=== PATIENT | female | born 1955 | race Caucasian/White ===

== ENCOUNTER 2018-12-18 19:55 | Emergency (ER) | payer OTHER ==
[2018-12-18 20:17] VITALS: BP 133/51
[2018-12-18] MEDS ORDERED: Neomyc/Polym/HC 1% OTIC SUSP* **OTIC LEFT EAR ONE (20:27)
--- NOTE | 2018-12-18 20:32 | UC ---
Ear Complaint HPI - HPI Summary HPI Summary: left ear feeling fullness for past 3 days, with increase itching. - History of Current Complaint Chief Complaint: UCEar Stated Complaint: LEFT EAR CONCERN Time Seen by Provider: 12/18/18 20:26 Hx Obtained From: Patient ?: No Onset/Duration: Sudden Onset, Lasting Days Severity Initially: Mild Severity Currently: Mild Pain Intensity: 0 Associated Signs/Symptoms: Positive: Foreign Body Sensation - Allergies/Home Medications Allergies/Adverse Reactions: Allergies Allergy/AdvReac Type Severity Reaction Status Date / Time No Known Allergies Allergy Verified 12/18/18 20:17 Home Medications: Home Medications Folic Acid TAB* [Folvite TAB*] 1 mg PO DAILY 12/18/18 [History Confirmed ] Methotrexate TAB* 2.5 mg PO WEEKLY 12/18/18 [History Confirmed 12/18/18] PMH/Surg Hx/FS Hx/Imm Hx Previously Healthy: No - RA - Surgical History Surgical History: None - Family History Known Family History: Positive: Hypertension - Social History Alcohol Use: None Substance Use Type: None Smoking Status (MU): Light Every Day Tobacco Smoker Type: Cigarettes Amount Used/How Often: 2 CIGS A DAY Have You Smoked in the Last Year: Yes Household Exposure Type: Cigarettes Review of Systems All Other Systems Reviewed And Are Negative: Yes ENT: Positive: Ear Ache Is Patient Immunocompromised?: Yes - RA Physical Exam Triage Information Reviewed: Yes Appearance: Well-Appearing, Pain Distress, Obese Vital Signs: Initial Vital Signs Temp 98.8 F 12/18/18 20:14 Pulse 81 12/18/18 20:14 Resp 16 12/18/18 20:14 BP 133/51 12/18/18 20:14 Pulse Ox 99 12/18/18 20:14 Vital Signs Reviewed: Yes Eye Exam: Normal ENT: Positive: TMs normal, Other - small amount of exudate in the external canal of the left ear. slightly inflammed, not swollen Dental Exam: Normal Neck exam: Normal Respiratory Exam: Normal Cardiovascular Exam: Normal Abdominal Exam: Normal Bowel Sounds: Positive: Present Musculoskeletal Exam: Normal Neurological Exam: Normal Psychological Exam: Normal Skin Exam: Normal Ear Complaint Course/Dx - Course Course Of Treatment: hx obtained, exam performed ,meds reviewed, treated for left otitis externa - Differential Dx/Diagnosis Differential Diagnosis/HQI/PQRI: Otitis Externa, Otitis Media, Perforated TM Provider Diagnosis: Left otitis externa Discharge - Sign-Out/Discharge Documenting (check all that apply): Patient Departure All imaging exams completed and their final reports reviewed: No Studies - Discharge Plan Condition: Stable Disposition: HOME Patient Education Materials: Otitis Externa (ED) Referrals: Rafael Pedroza MD [Primary Care Provider] - Additional Instructions: 1. take the medication as prescribed. 2. Use it for the full 7 days 3. follow up if not improving. - Billing Disposition and Condition Condition: STABLE Disposition: Home
== END 2018-12-18 20:46 | disposition home or self-care (01) ==
LOC: UCCORT 19:55
DX: H60.92 Unspecified otitis externa, left ear (principal); M06.9 Rheumatoid arthritis, unspecified; F17.210 Nicotine dependence, cigarettes, uncomplicated
CPT/HCPCS: 99212; A9270-GY; G0463

== ENCOUNTER 2019-03-15 17:05 | Emergency (ER) | payer OTHER ==
[2019-03-15 17:31] VITALS: BP 97/58
--- NOTE | 2019-03-15 17:57 | UC ---
Ear Complaint HPI - HPI Summary HPI Summary: Per textile supervisor: "left ear pain for past 2 days, states 4th infection" -here w/ her . -reviewd note from 01/01 seen here - dx'd w/ perforated TM and OE. treated w/ cortisporin w/ good relief. says she had an infection 2 wks ago but didnt get sen and it resolved on its own. -denies sinus pain. no fever. no cough - History of Current Complaint Chief Complaint: UCEar Stated Complaint: LEFT EAR CONCERN Time Seen by Provider: 03/15/19 17:19 Pain Intensity: 0 - Allergies/Home Medications Allergies/Adverse Reactions: Allergies Allergy/AdvReac Type Severity Reaction Status Date / Time No Known Allergies Allergy Verified 03/15/19 17:31 PMH/Surg Hx/FS Hx/Imm Hx Previously Healthy: Yes - Surgical History Surgical History: None - Family History Known Family History: Positive: Hypertension - Social History Alcohol Use: None Substance Use Type: None Smoking Status (MU): Light Every Day Tobacco Smoker Type: Cigarettes Amount Used/How Often: 2 CIGS A DAY Have You Smoked in the Last Year: Yes Household Exposure Type: Cigarettes Review of Systems All Other Systems Reviewed And Are Negative: Yes Constitutional: Positive: Negative Skin: Positive: Negative Eyes: Positive: Negative ENT: Positive: Ear Ache. Negative: Sore Throat, Sinus Congestion, Sinus Pain/ Tenderness Respiratory: Positive: Negative. Negative: Shortness Of Breath, Cough Cardiovascular: Positive: Negative Gastrointestinal: Positive: Negative Genitourinary: Positive: Negative Motor: Positive: Negative Neurovascular: Positive: Negative Musculoskeletal: Positive: Negative Neurological: Positive: Negative Psychological: Positive: Negative Is Patient Immunocompromised?: Yes - RA, on mTX Physical Exam Triage Information Reviewed: Yes Appearance: Well-Appearing, No Pain Distress, Well-Nourished Vital Signs: Initial Vital Signs Temp 99.1 F 03/15/19 17:28 Pulse 77 03/15/19 17:28 Resp 16 03/15/19 17:28 BP 97/58 03/15/19 17:28 Pulse Ox 97 03/15/19 17:28 Eye Exam: Normal Eyes: Positive: Conjunctiva Clear ENT: Positive: Pharynx normal, TMs normal - left canal with mild swelling,. tender and inflamed. TM nml, intact. no erythema, Uvula midline. Negative: Pharyngeal erythema Neck exam: Normal Neck: Positive: Supple, Nontender, No Lymphadenopathy Respiratory Exam: Normal Respiratory: Positive: Chest non-tender, Lungs clear, Normal breath sounds, No respiratory distress, No accessory muscle use. Negative: Crackles, Rhonchi, Stridor, Wheezing Cardiovascular Exam: Normal Cardiovascular: Positive: RRR, No Murmur Musculoskeletal Exam: Normal Neurological Exam: Normal Psychological Exam: Normal Skin Exam: Normal Ear Complaint Course/Dx - Differential Dx/Diagnosis Differential Diagnosis/HQI/PQRI: Cerumen Impaction, Otitis Externa, Otitis Media Provider Diagnosis: Otitis externa Discharge - Sign-Out/Discharge Documenting (check all that apply): Patient Departure All imaging exams completed and their final reports reviewed: No Studies - Discharge Plan Condition: Stable Disposition: HOME Prescriptions: Neomyc/Polym/HC 1% OTIC SUSP* [Cortisporin Otic Susp 1%*] 4 drop LEFT EAR BID # 1 btl Patient Education Materials: Otitis Externa (ED) Referrals: Rafale Pedroza MD [Primary Care Provider] - 1 Week Additional Instructions: Consider referral to an ENT specialist if your symptoms increase or persist. - Billing Disposition and Condition Condition: STABLE Disposition: Home
== END 2019-03-15 18:17 | disposition home or self-care (01) ==
LOC: UCCORT 17:05
DX: H60.92 Unspecified otitis externa, left ear (principal); F17.210 Nicotine dependence, cigarettes, uncomplicated
CPT/HCPCS: 99212; G0463

== ENCOUNTER 2019-07-01 16:55 | Emergency (ER) | payer OTHER ==
--- OUTSIDE RECORDS SUMMARY | 2019-07-01 17:00 | XMS REPORT | Continuity of Care Document ---
:1955 External Reference #:[id number] Author Name Rafael Pedroza (transmitted by agent of provider Luz Huffman) Address [address] [place] [address] Problems Description No Information Available Social History Type Date Description Comments Sex Unknown Tobacco Use Start: Unknown Patient is a current cigarette smoker, smokes every day ETOH Use Social Recreational Drug Use Denies Drug Use Tobacco Use Start: Unknown Patient is a current smoker, smokes every day Smoking Status Reviewed: 06/29/17 Patient is a current smoker, smokes every day Allergies, Adverse Reactions, Alerts Description No Known Drug Allergies Medications Active Medications SIG Qnty Indications Ordering Provider Date Neomycin/Polymyxin/Hy 1 qtt both 10units H60.22 Rafael Pedroza 04/11/2019 drocortisone (Otic) right ear 4 x daily 3.5-71290-3 Solution Alive Once Daily one a day Unknown Womens 50+ Ultra Potency Tablets Medications Administered in Office Medication SIG Qnty Indications Ordering Provider Date Office Emergency Care Rafael Pedroza 08/03/2018 Injection Immunizations CPT Code Status Date Vaccine Lot # [id number] Given 06/01/2017 Influenza Virus (Afluria) Split Virus 3 Years Of Age And Older Vital Signs Date Vital Result Comment 06/14/2019 10:31am BP Systolic 112 mmHg BP Diastolic 62 mmHg Heart Rate 70 /min Body Temperature 97.3 F Respiratory Rate 16 /min Weight 228.00 lb 05/04/2019 11:10am BP Systolic 98 mmHg BP Diastolic 68 mmHg Heart Rate 77 /min Height 65 inches 5'5" Weight 224.00 lb BMI (Body Mass Index) 37.3 kg/m2 O2 % BldC Oximetry 95 % Results Test Acquired Date Facility Test Result H/L Range Note Comprehensive 04/26/2019 [facility] Glucose 87 mg/dL Normal 74-106 1 Metabolic Panel [address] [place] [address] [phone] BUN 13 mg/dL Normal 7-18 Creatinine 1.1 mg/dL Normal 0.6-1.3 Glom Filtration Rate, Estimate 53 mL/min >60 If >60 mL/min >60 2 BUN/Creat 11.8 ratio Sodium 141 mmol/L Normal 136-145 Potassium 4.3 mmol/L Normal 3.5-5.1 Chloride 109 mmol/L High 98-107 Carbon Dioxide 27 mmol/L Normal 21-32 Anion Gap 5 mEq/L Low 8-16 Calcium 8.8 mg/dL Normal 8.5-10.1 Total Protein 7.7 g/dL Normal 6.4-8.2 Albumin 3.4 g/dL Normal 3.4-5.0 Globulin 4.3 g/dL Normal 1.9-4.3 Alb/Glob 0.8 ratio Bilirubin,Total 0.2 mg/dL Normal 0.2-1.0 Sgot/Ast 15 U/L Normal 15-37 SGPT/Alt 21 U/L Normal 12-78 Alkaline Phosphatase 96 U/L Normal 45-117 CBS W/Automated 04/26/2019 [facility] White 7.7 K/uL Normal 3.1-10.[address] [place] [address] Count [phone] Red Blood Count 4.11 M/uL Normal 3.90-5.40 Hemoglobin 13.0 gm/dL Normal 11.6-15.8 Hematocrit 40.1 % Normal 36.0-46.1 Mean Cell Volume 97.6 fl Normal 80.9-99.0 Mean Corpuscular HGB 31.6 pg Normal 25.9-32.7 Mean Corpuscular HGB Conc 32.4 g/dL Normal 30.8-34.3 Platelet Count 296 K/uL Normal 155-360 Red Cell Distri Width SD 50.1 fl High 36-47 Red Cell Distri Width %CV 13.9 % Normal 11.7-14.4 Mean Platelet Volume 9.9 fl Normal 8.9-12.4 Neut% 65.6 % Normal 40.4-72.8 Lymph % 20.8 % Normal 20.0-42.0 [place] % 10.1 % Normal 4.3-13.2 Eo% 2.3 % Normal 0.0-6.6 Bas% 0.8 % Normal 0.0-1.1 Immature Grans 0.4 % Normal 0.0-5.0 NRBC % 0.0 /100WBC < 10/ 100 WBC Neut# 5.03 K/uL Normal 1.8-7.0 Lymph # 1.59 K/uL Normal 1.0-4.0 [place] # 0.77 K/uL Normal 0.3-0.9 Eos # 0.18 K/uL Normal 0.0-0.5 Baso # 0.06 K/uL Normal 0.0-0.1 Immature Grans Absolute 0.03 K/uL NRBC # 0.00 K/uL 1 DX WITH KIDNEY INFECTION, SEVERE BACK PAIN 2 Note: Persistent reduction for 3 months or more in an eGFR <60 mL/min/1.73 m2 defines CKD. Patients with eGFR values >/=60 mL/min/1.73 m2 may also have CKD if evidence of persistent proteinuria is present. The original MDRD equation for estimated GFR is not valid for patients less than 18 years of age. Additional information may be found at [email or web address]. 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, left ear E11.9 Type 2 diabetes mellitus without complications J44.9 Chronic obstructive pulmonary disease, unspecified M06.9 Rheumatoid arthritis, unspecified M67.422 Ganglion, left elbow E66.9 Obesity, unspecified Office Visit 04/11/2019 11:45a Main Office Rafael Pedroza 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, left ear E11.9 Type 2 diabetes mellitus without complications J44.9 Chronic obstructive pulmonary disease, unspecified M06.9 Rheumatoid arthritis, unspecified M67.422 Ganglion, left elbow E66.9 Obesity, unspecified E55.9 Vitamin D deficiency, unspecified I34.0 Nonrheumatic mitral (valve) insufficiency Assessments Date Code Description Provider 05/04/2019 N39.0 Urinary tract infection, site not specified Gal[place]isa, Rafael 05/04/2019 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, left ear Gauss, Rafael 05/04/2019 E11.9 Type 2 diabetes mellitus without complications Gauss, Rafael 05/04/2019 J44.9 Chronic obstructive pulmonary disease, unspecified Gauss, Rafael 05/04/2019 M06.9 Rheumatoid arthritis, unspecified Gauss, Rafael 05/04/2019 M67.422 Ganglion, left elbow Gauss, Rafael 05/04/2019 E66.9 Obesity, unspecified Gauss, Rafael 04/11/2019 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, left ear Gauss, Rafael 04/11/2019 E11.9 Type 2 diabetes mellitus without complications [facility], Rafael 04/11/2019 J44.9 Chronic obstructive pulmonary disease, unspecified Gauss, Rafael 04/11/2019 M06.9 Rheumatoid arthritis, unspecified Gauss, Rafael 04/11/2019 M67.422 Ganglion, left elbow Gauss, Rafael 04/11/2019 E66.9 Obesity, unspecified Gauss, [facility] 04/11/2019 E55.9 Vitamin D deficiency, unspecified Deuss, [facility] 04/11/2019 I34.0 Nonrheumatic mitral (valve) insufficiency Rafael Pedroza Plan of Treatment Future Appointment(s):07/19/2019 10:00 am - Rafael Pedroza at Main Office Functional Status Description No Information Available Mental Status Description No Information Available Referrals Refer to Reason for Referral Status Appt Date Kenton Marley M.D. Closed 05/02/[address] [place] [address] [phone]
--- OUTSIDE RECORDS SUMMARY | 2019-07-01 17:00 | XMS REPORT | Continuity of Care Document ---
:1955 External Reference #:[id number] Author Name Rafael Pedroza (transmitted by agent of provider Luz Huffman) Address [address] [place] [address] Problems Description No Information Available Social History [...] drocortisone (Otic) right ear 4 x daily 3.5-83588-2 Solution Alive Once Daily one a day [...] Test Result H/L Range Note Comprehensive 04/26/2019 [facility] Glucose 87 mg/dL Normal 74-106 1 Metabolic Panel [address] [place] [address] [phone] BUN 13 mg/dL Normal 7-18 Creatinine 1.1 [...] 96 U/L Normal 45-117 CBS W/Automated 04/26/2019 [facility] White 7.7 K/uL Normal 3.1-10.[address] [place] [address] Count [phone] Red Blood Count 4.11 M/uL Normal 3.90-5.40 [...] 40.4-72.8 Lymph % 20.8 % Normal 20.0-42.0 [place] % 10.1 % Normal 4.3-13.2 Eo% 2.3 % Normal 0.0-6.6 Bas% 0.8 % Normal 0.0-1.1 Immature Grans 0.4 % Normal 0.0-5.0 NRBC % 0.0 /100WBC < 10/ 100 WBC Neut# 5.03 K/uL Normal 1.8-7.0 Lymph # 1.59 K/uL Normal 1.0-4.0 [place] # 0.77 K/uL Normal 0.3-0.9 Eos # [...] [email or web address]. Procedures Date Code Description Status 12/23/2017 [id number] Bone Mineral Density Test Completed 11/22/2015 [id number] Bone Mineral Density Test Completed Medical Devices [...] E11.9 Type 2 diabetes mellitus without complications [facility], Rafael 04/11/2019 J44.9 Chronic obstructive pulmonary disease, unspecified Gauss, Rafael 04/11/2019 M06.9 Rheumatoid arthritis, unspecified Gauss, Rafael 04/11/2019 M67.422 Ganglion, left elbow Gauss, Rafael 04/11/2019 E66.9 Obesity, unspecified Gauss, [facility] 04/11/2019 E55.9 Vitamin D deficiency, unspecified Ohuss, [facility] 04/11/2019 I34.0 Nonrheumatic mitral (valve) insufficiency Rafael Pedroza Plan of Treatment Future Appointment(s):07/19/2019 10:00 am - Rafael Pedroza at Main Office Functional Status Description No Information Available Mental Status Description No Information Available Referrals Refer to Reason for Referral Status Appt Date Kenton Marley M.D. Closed 05/02/[address] [place] [address] [phone]
--- OUTSIDE RECORDS SUMMARY | 2019-07-01 17:00 | XMS REPORT | Continuity of Care Document ---
:1955 External Reference #:[id number] Author Name Rafael Pedroza (transmitted by agent of provider Luz Huffman) Address [address] [place] [address] Problems Description No Information Available Social History [...] drocortisone (Otic) right ear 4 x daily 3.5-45560-3 Solution Alive Once Daily one a day [...] Test Result H/L Range Note Comprehensive 04/26/2019 [facility] Glucose 87 mg/dL Normal 74-106 1 Metabolic Panel [address] [place] [address] [phone] BUN 13 mg/dL Normal 7-18 Creatinine 1.1 [...] 96 U/L Normal 45-117 CBS W/Automated 04/26/2019 [facility] White 7.7 K/uL Normal 3.1-10.[address] [place] [address] Count [phone] Red Blood Count 4.11 M/uL Normal 3.90-5.40 [...] 40.4-72.8 Lymph % 20.8 % Normal 20.0-42.0 [place] % 10.1 % Normal 4.3-13.2 Eo% 2.3 % Normal 0.0-6.6 Bas% 0.8 % Normal 0.0-1.1 Immature Grans 0.4 % Normal 0.0-5.0 NRBC % 0.0 /100WBC < 10/ 100 WBC Neut# 5.03 K/uL Normal 1.8-7.0 Lymph # 1.59 K/uL Normal 1.0-4.0 [place] # 0.77 K/uL Normal 0.3-0.9 Eos # [...] [email or web address]. Procedures Date Code Description Status 12/23/2017 [id number] Bone Mineral Density Test Completed 11/22/2015 [id number] Bone Mineral Density Test Completed Medical Devices [...] E11.9 Type 2 diabetes mellitus without complications [facility], Rafael 04/11/2019 J44.9 Chronic obstructive pulmonary disease, unspecified Gauss, Rafael 04/11/2019 M06.9 Rheumatoid arthritis, unspecified Gauss, Rafael 04/11/2019 M67.422 Ganglion, left elbow Gauss, Rafael 04/11/2019 E66.9 Obesity, unspecified Gauss, [facility] 04/11/2019 E55.9 Vitamin D deficiency, unspecified Dcuss, [facility] 04/11/2019 I34.0 Nonrheumatic mitral (valve) insufficiency Rafael Pedroza Plan of Treatment Future Appointment(s):07/19/2019 10:00 am - Rafael Pedroza at Main Office Functional Status Description No Information Available Mental Status Description No Information Available Referrals Refer to Reason for Referral Status Appt Date Kenton Marley M.D. Closed 05/02/[address] [place] [address] [phone]
--- OUTSIDE RECORDS SUMMARY | 2019-07-01 17:00 | XMS REPORT | Continuity of Care Document ---
:1955 External Reference #:[id number] Author Name Rafael Pedroza (transmitted by agent of provider Luz Huffman) Address [address] [place] [address] Problems Description No Information Available Social History [...] drocortisone (Otic) right ear 4 x daily 3.5-12768-2 Solution Alive Once Daily one a day Unknown Womens 50+ Ultra Potency Tablets Medications Administered in Office Medication SIG Qnty Indications Ordering Provider Date Office Emergency Care Rafael Pedroza 08/03/2018 Injection Immunizations CPT Code Status Date Vaccine Lot # [id number] Given 06/01/2017 Influenza Virus (Quadrivalent)Splitvirus 3 Years Of Age And Older Vital [...] Test Result H/L Range Note Comprehensive 04/26/2019 [facility] Glucose 87 mg/dL Normal 74-106 1 Metabolic Panel [address] [place] [address] [phone] BUN 13 mg/dL Normal 7-18 Creatinine 1.1 [...] 96 U/L Normal 45-117 CBS W/Automated 04/26/2019 [facility] White 7.7 K/uL Normal 3.1-10.[address] [place] [address] Count [phone] Red Blood Count 4.11 M/uL Normal 3.90-5.40 [...] 40.4-72.8 Lymph % 20.8 % Normal 20.0-42.0 [place] % 10.1 % Normal 4.3-13.2 Eo% 2.3 % Normal 0.0-6.6 Bas% 0.8 % Normal 0.0-1.1 Immature Grans 0.4 % Normal 0.0-5.0 NRBC % 0.0 /100WBC < 10/ 100 WBC Neut# 5.03 K/uL Normal 1.8-7.0 Lymph # 1.59 K/uL Normal 1.0-4.0 [place] # 0.77 K/uL Normal 0.3-0.9 Eos # [...] [email or web address]. Procedures Date Code Description Status 12/23/2017 [id number] Bone Mineral Density Test Completed 11/22/2015 [id number] Bone Mineral Density Test Completed Medical Devices Description No Information Available Encounters Type Date Location Provider Dx Diagnosis Office Visit 06/14/2019 10:00a Main Office Rafael Pedroza H92.02 Otalgia, left ear Office Visit 05/04/2019 11:15a Main Office Rafael [...] (valve) insufficiency Assessments Date Code Description Provider 06/14/2019 H92.02 Otalgia, left ear Gauss, Rafael 05/04/2019 N39.0 Urinary tract infection, site not specified Gauss, Rafael 05/04/2019 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, left [...] 2 diabetes mellitus without complications Gauss, Rafael 04/11/2019 J44.9 Chronic obstructive pulmonary disease, unspecified Gauss, Rafael 04/11/2019 M06.9 Rheumatoid arthritis, unspecified Gauss, Rafael 04/11/2019 M67.422 Ganglion, left elbow Gauss, Rafael 04/11/2019 E66.9 Obesity, unspecified Gauss, Rafael 04/11/2019 E55.9 Vitamin D deficiency, unspecified Gauss, Rafael 04/11/2019 I34.0 Nonrheumatic mitral (valve) insufficiency Rafael Pedroza Plan of Treatment Future Appointment(s):07/19/2019 10:00 am - Rafael Pedroza at Main Office Functional Status Description No Information Available Mental Status Description No Information Available Referrals Refer to Dr Reason for Referral Status Appt Date Kenton Marley M.D. Created [address] [place] [address] [phone] Kenton Marley M.D. Closed 05/02/[address] [place] [address] [phone]
--- OUTSIDE RECORDS SUMMARY | 2019-07-01 17:00 | XMS REPORT | Continuity of Care Document ---
:1955 External Reference #:[id number] Author Name Rafael Pedroza (transmitted by agent of provider Yane Rincon) Address [address] [place] [address] Problems Description No Information Available Social History [...] drocortisone (Otic) right ear 4 x daily 3.5-41241-9 Solution Alive Once Daily one a day [...] Test Result H/L Range Note Comprehensive 04/26/2019 [facility] Glucose 87 mg/dL Normal 74-106 1 Metabolic Panel [address] [place] [address] [phone] BUN 13 mg/dL Normal 7-18 Creatinine 1.1 [...] 96 U/L Normal 45-117 CBS W/Automated 04/26/2019 [facility] White 7.7 K/uL Normal 3.1-10.[address] [place] [address] Count [phone] Red Blood Count 4.11 M/uL Normal 3.90-5.40 [...] 40.4-72.8 Lymph % 20.8 % Normal 20.0-42.0 [place] % 10.1 % Normal 4.3-13.2 Eo% 2.3 % Normal 0.0-6.6 Bas% 0.8 % Normal 0.0-1.1 Immature Grans 0.4 % Normal 0.0-5.0 NRBC % 0.0 /100WBC < 10/ 100 WBC Neut# 5.03 K/uL Normal 1.8-7.0 Lymph # 1.59 K/uL Normal 1.0-4.0 [place] # 0.77 K/uL Normal 0.3-0.9 Eos # [...] [email or web address]. Procedures Date Code Description Status 12/23/2017 [id number] Bone Mineral Density Test Completed 11/22/2015 [id number] Bone Mineral Density Test Completed Medical Devices [...] 10:00 am - Rafael Pedroza at Main [id number] - Rafael PedrozaH92.02 Otalgia, left earComments:DESPITE DROPS NO IMPROVEMENTReferral:Kenton Marley M.D., Otolaryngology Functional Status Description No Information Available Mental Status Description No Information Available Referrals Refer to Dr Reason for Referral Status Appt Date Kenton Marley M.D. Created [address] [place] [phone] Kenton Marley M.D. Closed 05/02/2019 [address] [place] [address] [phone]
--- OUTSIDE RECORDS SUMMARY | 2019-07-01 17:00 | XMS REPORT | Continuity of Care Document ---
:1955 External Reference #:[id number] Author Name Rafael Pedroza (transmitted by agent of provider Luz Huffman) Address [address] [place] [address] Problems Description No Information Available Social History [...] drocortisone (Otic) right ear 4 x daily 3.5-29323-3 Solution Alive Once Daily one a day [...] Test Result H/L Range Note Comprehensive 04/26/2019 [facility] Glucose 87 mg/dL Normal 74-106 1 Metabolic Panel [address] [place] [address] [phone] BUN 13 mg/dL Normal 7-18 Creatinine 1.1 [...] 96 U/L Normal 45-117 CBS W/Automated 04/26/2019 [facility] White 7.7 K/uL Normal 3.1-10.[address] [place] [place] [address] Count [phone] Red Blood Count 4.11 M/uL Normal 3.90-5.40 [...] 40.4-72.8 Lymph % 20.8 % Normal 20.0-42.0 [place] % 10.1 % Normal 4.3-13.2 Eo% 2.3 % Normal 0.0-6.6 Bas% 0.8 % Normal 0.0-1.1 Immature Grans 0.4 % Normal 0.0-5.0 NRBC % 0.0 /100WBC < 10/ 100 WBC Neut# 5.03 K/uL Normal 1.8-7.0 Lymph # 1.59 K/uL Normal 1.0-4.0 [place] # 0.77 K/uL Normal 0.3-0.9 Eos # [...] [email or web address]. Procedures Date Code Description Status 12/23/2017 [id number] Bone Mineral Density Test Completed 11/22/2015 [id number] Bone Mineral Density Test Completed Medical Devices [...] E11.9 Type 2 diabetes mellitus without complications [facility], Rafael 04/11/2019 J44.9 Chronic obstructive pulmonary disease, unspecified Gauss, Rafael 04/11/2019 M06.9 Rheumatoid arthritis, unspecified Gauss, Rafael 04/11/2019 M67.422 Ganglion, left elbow Gauss, Rafael 04/11/2019 E66.9 Obesity, unspecified Gauss, [facility] 04/11/2019 E55.9 Vitamin D deficiency, unspecified Nvuss, [facility] 04/11/2019 I34.0 Nonrheumatic mitral (valve) insufficiency Rafael Pedroza Plan of Treatment Future Appointment(s):07/19/2019 10:00 am - Rafael Pedroza at Main Office Functional Status Description No Information Available Mental Status Description No Information Available Referrals Refer to Reason for Referral Status Appt Date Kenton Marley M.D. Closed 05/02/[address] [place] [address] [phone]
--- OUTSIDE RECORDS SUMMARY | 2019-07-01 17:00 | XMS REPORT | Continuity of Care Document ---
:1955 External Reference #:[id number] Author Name Rafael Pedroza (transmitted by agent of provider Luz Huffman) Address [address] [place] [address] Problems Description No Information Available Social History [...] drocortisone (Otic) right ear 4 x daily 3.5-14082-0 Solution Alive Once Daily one a day [...] Test Result H/L Range Note Comprehensive 04/26/2019 [facility] Glucose 87 mg/dL Normal 74-106 1 Metabolic Panel [address] [place] [address] [phone] BUN 13 mg/dL Normal 7-18 Creatinine 1.1 [...] 96 U/L Normal 45-117 CBS W/Automated 04/26/2019 [facility] White 7.7 K/uL Normal 3.1-10.[address] [place] [address] Count [phone] Red Blood Count 4.11 M/uL Normal 3.90-5.40 [...] 40.4-72.8 Lymph % 20.8 % Normal 20.0-42.0 [place] % 10.1 % Normal 4.3-13.2 Eo% 2.3 % Normal 0.0-6.6 Bas% 0.8 % Normal 0.0-1.1 Immature Grans 0.4 % Normal 0.0-5.0 NRBC % 0.0 /100WBC < 10/ 100 WBC Neut# 5.03 K/uL Normal 1.8-7.0 Lymph # 1.59 K/uL Normal 1.0-4.0 [place] # 0.77 K/uL Normal 0.3-0.9 Eos # [...] [email or web address]. Procedures Date Code Description Status 12/23/2017 [id number] Bone Mineral Density Test Completed 11/22/2015 [id number] Bone Mineral Density Test Completed Medical Devices [...] E11.9 Type 2 diabetes mellitus without complications [facility], Rafael 04/11/2019 J44.9 Chronic obstructive pulmonary disease, unspecified Gauss, Rafael 04/11/2019 M06.9 Rheumatoid arthritis, unspecified Gauss, Rafael 04/11/2019 M67.422 Ganglion, left elbow Gauss, Rafael 04/11/2019 E66.9 Obesity, unspecified Gauss, [facility] 04/11/2019 E55.9 Vitamin D deficiency, unspecified Nmuss, [facility] 04/11/2019 I34.0 Nonrheumatic mitral (valve) insufficiency Rafael Pedroza Plan of Treatment Future Appointment(s):07/19/2019 10:00 am - Rafael Pedroza at Main Office Functional Status Description No Information Available Mental Status Description No Information Available Referrals Refer to Reason for Referral Status Appt Date Kenton Marley M.D. Closed 05/02/[address] [place] [address] [phone]
--- OUTSIDE RECORDS SUMMARY | 2019-07-01 17:01 | XMS REPORT | Continuity of Care Document ---
:1955 External Reference #:[id number] Demographics Address [address] [facility] [address] [place] [address] Mobile Phone [phone] Work Phone [phone];ext=LARISA Preferred Language en Marital Status Not or Caodaism Affiliation Unknown Race White Ethnic Group Not or Author Name Rafael Pedroza (transmitted by agent of provider Teresa Sheth) Address [address] [place] [address] Problems Description No Information Available Social History [...] drocortisone (Otic) right ear 4 x daily 3.5-39143-1 Solution Alive Once Daily one a day Unknown Womens 50+ Ultra Potency Tablets Medications Administered in Office Medication SIG Qnty Indications Ordering Provider Date Office Emergency Care Rafael Pedroza 08/03/2018 Injection Immunizations CPT Code Status Date Vaccine Lot # [id number] Given 06/01/2017 Influenza Virus (Afluria) Split Virus 3 Years Of Age And Older Vital Signs Date Vital Result Comment 05/04/2019 11:10am BP Systolic 98 mmHg BP Diastolic 68 mmHg Heart Rate 77 /min Height 65 inches 5'5" Weight 224.00 lb BMI (Body Mass Index) 37.3 kg/m2 O2 % BldC Oximetry 95 % 04/11/2019 12:01pm BP Systolic 100 mmHg BP Diastolic 62 mmHg Heart Rate 82 /min Height 65 inches 5'5" Weight 222.00 lb BMI (Body Mass Index) 36.9 kg/m2 O2 % BldC Oximetry 93 % Results Test Date Facility Test Result H/L Range Note Comprehensive 04/26/2019 [facility] Glucose 87 mg/dL Normal 74-106 1 Metabolic Panel [address] [place] [address] [phone] BUN 13 mg/dL Normal 7-18 Creatinine 1.1 [...] 96 U/L Normal 45-117 CBS W/Automated 04/26/2019 [facility] White 7.7 K/uL Normal 3.1-10.[address] [place] [address] Count [phone] Red Blood Count 4.11 M/uL Normal 3.90-5.40 [...] 40.4-72.8 Lymph % 20.8 % Normal 20.0-42.0 [place] % 10.1 % Normal 4.3-13.2 Eo% 2.3 % Normal 0.0-6.6 Bas% 0.8 % Normal 0.0-1.1 Immature Grans 0.4 % Normal 0.0-5.0 NRBC % 0.0 /100WBC < 10/ 100 WBC Neut# 5.03 K/uL Normal 1.8-7.0 Lymph # 1.59 K/uL Normal 1.0-4.0 [place] # 0.77 K/uL Normal 0.3-0.9 Eos # [...] [email or web address]. 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, left ear E11.9 Type 2 diabetes mellitus without complications J44.9 Chronic obstructive pulmonary disease, unspecified M06.9 Rheumatoid arthritis, unspecified M67.422 Ganglion, left elbow E66.9 Obesity, unspecified E55.9 Vitamin D deficiency, unspecified I34.0 Nonrheumatic mitral (valve) insufficiency Assessments Date Code Description Provider 04/11/2019 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, left ear Rafael Pedroza 04/11/2019 E11.9 Type 2 diabetes mellitus without complications Rafael Pedroza 04/11/2019 J44.9 Chronic obstructive pulmonary disease, unspecified Rafael Pedroza 04/11/2019 M06.9 Rheumatoid arthritis, unspecified Kasia Rafael 04/11/2019 M67.422 Ganglion, left elbow Rafael Pedroza 04/11/2019 E66.9 Obesity, unspecified Rafael Pedroza 04/11/2019 E55.9 Vitamin D deficiency, unspecified BhavikRafael peres 04/11/2019 I34.0 Nonrheumatic mitral (valve) insufficiency Rafael Pedroza Plan of Treatment Future Appointment(s):05/05/2019 8:00 am - Nurse at Main Ljplin6605/17/2019 11: 15 am - Rafael Pedroza at Main Iwltjb3404/11/2019 - Rafael Pedroza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, left earNew Medication:Neomycin/Polymyxin/Hydrocortisone (Otic) 3.5-45266-6 - 1 qtt both right ear 4 x dailyComments:she states 5 infections, recurrentReferral:[place] Marley M.D., HyvxwvudqxjlneB06.9 Type 2 diabetes mellitus without complicationsComments:Continue with medication as directed. Continue with reduced carb diet. To continue with fingerstick monitoring Q Day Continue to follow reduced carbohydrate low fat diet. Exercise regularly. Needs annual blood sugar evaluation. Emphasized weight control to manage blood sugar government guard. Continue with medication as directed. Continue with reduced carb diet. To continue with fingerstick monitoring Q Day Continue to follow reduced carbohydrate low fat diet. Exercise regularly. Needs annual blood sugar evaluation. Emphasized weight control to manage blood sugar usp.J44.9 Chronic obstructive pulmonary disease, unspecifiedComments:Discussed importance of excersize and avoidance of all smoke. Enviromental factors that can spark exacerbations reviewed. The necessity of reporting any changes in condition, early intervention in exacerbations and proper useand the importance of compliance with medications. Reports if applicable of home care providers, and equipment suppliers and Respiratory Therapy reviewed.M06.9 Rheumatoid arthritis, unspecifiedComments:Discussed immunological basis and goals of therapy including symptom control, joint mobility and inflammation minimalization. Role and importance of Rheumatological follow up, medication monitoring andside effects discussed.M67.422 Ganglion, left seoobI87.9 Obesity, unspecifiedComments:Discussed health effects of obesity and healthy diet choices. Effect on other diseases and interaction of dietary factors stressed. Weight loss options discussed and information on community resources,various weight loss strategies and popular diets reviewed.E55.9 Vitamin D deficiency, zaeweyhhnmyA37.0 Nonrheumatic mitral (valve) insufficiencyComments:Issues of symptoms and aggravating lifestyle factors such as sleep, stress and dietary choices discussed. Symptoms and medication treatment and compliance and side effects discussed as needed. Need forSBE prophalaxis with antibiotics addressed and discussed where indicated. Follow up Echocardiogram as required.Discussed valvular pathology and need if indicated for antibiotic prophylaxis to prevent S.B.E. Medication compliance and side effects issues addressed. Follow up echocardiogram as warranted.Results of 2D echo and other testing reviewed and discussed with patient possible etiologies, progression prognosis and need for prophylactic antibiotics before dental procedures if warranted for S.B.E. prophylaxis. Routine follow up/ surveillance planned. Functional Status Description No Information Available Mental Status Description No Information Available Referrals Refer to Reason for Referral Status Appt Date Kenton Marley M.D. Closed 05/02/[address] [place] [address] [phone]
--- OUTSIDE RECORDS SUMMARY | 2019-07-01 17:01 | XMS REPORT | Continuity of Care Document ---
:1955 External Reference #:[id number] Author Name Rafael Pedroza (transmitted by agent of provider Carrie Disla) Address [address] [place] [address] Problems Description No Information Available Social History [...] drocortisone (Otic) right ear 4 x daily 3.5-80069-8 Solution Alive Once Daily one a day [...] Test Result H/L Range Note Comprehensive 04/26/2019 [facility] Glucose 87 mg/dL Normal 74-106 1 Metabolic Panel [address] [place] [address] [phone] BUN 13 mg/dL Normal 7-18 Creatinine 1.1 [...] 96 U/L Normal 45-117 CBS W/Automated 04/26/2019 [facility] White 7.7 K/uL Normal 3.1-10.[address] [place] [address] Count [phone] Red Blood Count 4.11 M/uL Normal 3.90-5.40 [...] 40.4-72.8 Lymph % 20.8 % Normal 20.0-42.0 [place] % 10.1 % Normal 4.3-13.2 Eo% 2.3 % Normal 0.0-6.6 Bas% 0.8 % Normal 0.0-1.1 Immature Grans 0.4 % Normal 0.0-5.0 NRBC % 0.0 /100WBC < 10/ 100 WBC Neut# 5.03 K/uL Normal 1.8-7.0 Lymph # 1.59 K/uL Normal 1.0-4.0 [place] # 0.77 K/uL Normal 0.3-0.9 Eos # [...] [email or web address]. Procedures Date Code Description Status 12/23/2017 [id number] Bone Mineral Density Test Completed 11/22/2015 [id number] Bone Mineral Density Test Completed Medical Devices [...] N39.0 Urinary tract infection, site not specified [facility], Rafael 05/04/2019 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, left [...] E11.9 Type 2 diabetes mellitus without complications [facility], Rafael 04/11/2019 J44.9 Chronic obstructive pulmonary disease, unspecified Gauss, Rafael 04/11/2019 M06.9 Rheumatoid arthritis, unspecified Gauss, Rafael 04/11/2019 M67.422 Ganglion, left elbow Gauss, Rafael 04/11/2019 E66.9 Obesity, unspecified Gauss, [facility] 04/11/2019 E55.9 Vitamin D deficiency, unspecified Msuss, [facility] 04/11/2019 I34.0 Nonrheumatic mitral (valve) insufficiency Rafael Pedroza Plan of Treatment Future Appointment(s):07/19/2019 10:00 am - Rafael Pedroza at Main Office Functional Status Description No Information Available Mental Status Description No Information Available Referrals Refer to Reason for Referral Status Appt Kenton Armijo M.D. Closed 05/02/[address] [place], [place] [id number] [phone]
--- OUTSIDE RECORDS SUMMARY | 2019-07-01 17:01 | XMS REPORT | Continuity of Care Document ---
:1955 External Reference #:[id number] Demographics Address [address] [facility] [address] [place] [address] Mobile Phone [phone] Work Phone [phone];ext=LARISA Preferred Language en Marital Status Not or Druze Affiliation Unknown Race White Ethnic Group Not or Author Name Rafael Pedroza (transmitted by agent of provider Yane Rincon) Address [address] [place] [address] Problems Description No Information Available Social History [...] drocortisone (Otic) right ear 4 x daily 3.5-17523-7 Solution Alive Once Daily one a day [...] Test Result H/L Range Note Comprehensive 04/26/2019 [facility] Glucose 87 mg/dL Normal 74-106 1 Metabolic Panel [address] [place] [address] [phone] BUN 13 mg/dL Normal 7-18 Creatinine 1.1 [...] 96 U/L Normal 45-117 CBS W/Automated 04/26/2019 [facility] White 7.7 K/uL Normal 3.1-10.[address] [place] [address] Count [phone] Red Blood Count 4.11 M/uL Normal 3.90-5.40 [...] 40.4-72.8 Lymph % 20.8 % Normal 20.0-42.0 [place] % 10.1 % Normal 4.3-13.2 Eo% 2.3 % Normal 0.0-6.6 Bas% 0.8 % Normal 0.0-1.1 Immature Grans 0.4 % Normal 0.0-5.0 NRBC % 0.0 /100WBC < 10/ 100 WBC Neut# 5.03 K/uL Normal 1.8-7.0 Lymph # 1.59 K/uL Normal 1.0-4.0 [place] # 0.77 K/uL Normal 0.3-0.9 Eos # [...] [email or web address]. Procedures Date Code Description Status 12/23/2017 [id number] Bone Mineral Density Test Completed 11/22/2015 [id number] Bone Mineral Density Test Completed Medical Devices [...] N39.0 Urinary tract infection, site not specified Kasia, Rafael 05/04/2019 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, left [...] E11.9 Type 2 diabetes mellitus without complications Bhaviklarisa Rafael 04/11/2019 J44.9 Chronic obstructive pulmonary disease, unspecified Gauss, Rafael 04/11/2019 M06.9 Rheumatoid arthritis, unspecified Gauss, Rafael 04/11/2019 M67.422 Ganglion, left elbow Gauss, Rafael 04/11/2019 E66.9 Obesity, unspecified Gauss, Rafael 04/11/2019 E55.9 Vitamin D deficiency, unspecified Gauss, Rafael 04/11/2019 I34.0 Nonrheumatic mitral (valve) insufficiency Rafael Pedroza Plan of Treatment Future Appointment(s):05/05/2019 8:00 am - Nurse at Main Dfxkab3605/17/2019 11: 15 am - Rafael Pedroza at Main Zkdsos5105/04/2019 - Chuckie PedrozalN39.0 Urinary tract infection, site not specifiedComments:EAQLZEOY05.22 Malignant otitis externa, left earE11.9 Type 2 diabetes mellitus without complicationsComments:Continue with medication as directed. Continue with reduced carb diet. To continue with fingerstick monitoring Q Day Continue to follow reduced carbohydrate low fat diet. Exercise regularly. Needs annual blood sugar evaluation. Emphasized weight control to manage blood sugar termite control service representative. Continue with medication as directed. Continue with reduced carb diet. To continue with fingerstick monitoring Q Day Continue to follow reduced carbohydrate low fat diet. Exercise regularly. Needs annual blood sugar evaluation. Emphasized weight control to manage blood sugar termite control service representative.J44.9 Chronic obstructive pulmonary disease, unspecifiedComments:Discussed importance of excersize and avoidance of all smoke. Enviromental factors that can spark exacerbations reviewed. The necessity of reporting any changes in condition, early intervention in exacerbations and proper useand the importance of compliance with medications. Reports if applicable of home care providers, and equipment suppliers and Respiratory Therapy reviewed.M06.9 Rheumatoid arthritis, unspecifiedComments: Discussed immunological basis and goals of therapy including symptom control, joint mobility and inflammation minimalization. Role and importance of Rheumatological follow up, medication monitoring andside effects discussed.M67.422 Ganglion, left yxpxjE44.9 Obesity, unspecifiedComments: Discussed health effects of obesity and healthy diet choices. Effect on other diseases and interaction of dietary factors stressed. Weight loss options discussed and information on community resources,various weight loss strategies and popular diets reviewed. Functional Status Description No Information Available Mental Status Description No Information Available Referrals Refer to Dr Reason for Referral Status Appt Date Kenton Marley M.D. Closed 05/02/[address] [place] [address] [phone]
[2019-07-01 17:28] VITALS: BP 112/60
--- NOTE | 2019-07-01 17:32 | UC ---
Ear Complaint HPI - HPI Summary HPI Summary: Patient is a 64yo female presenting with for complaint of "left ear canal infection" x2 days. Notes pain and tenderness to touch. Denies drainage from ear. Denies decreased hearing. Denies R ear symptoms and URI symptoms. Denies fever and chills. Patient states she has had this approximately 7 times now, the last time being about a month ago. States she was given drops. States she used the same drops when this episode started two days ago but has not had any relief. States pain has gotten worse. - History of Current Complaint Chief Complaint: UCEar Stated Complaint: LT EAR COMPLAINT Hx Obtained From: Patient Onset/Duration: Gradual Onset, Lasting Days Severity Initially: Mild Severity Currently: Moderate Pain Intensity: 8 Pain Scale Used: 0-10 Numeric Related History: Smoking - Allergies/Home Medications Allergies/Adverse Reactions: Allergies Allergy/AdvReac Type Severity Reaction Status Date / Time No Known Allergies Allergy Verified 07/01/19 17:29 Home Medications: Home Medications Arthritis Med 1 dose PO BID 07/01/19 [History Confirmed 07/01/19] PMH/Surg Hx/FS Hx/Imm Hx - Surgical History Surgical History: None - Family History Known Family History: Positive: Hypertension - Social History Alcohol Use: None Substance Use Type: None Smoking Status (MU): Heavy Every Day Tobacco Smoker Type: Cigarettes Amount Used/How Often: 2 CIGS A DAY Have You Smoked in the Last Year: Yes Household Exposure Type: Cigarettes Review of Systems All Other Systems Reviewed And Are Negative: Yes Constitutional: Positive: Negative ENT: Positive: Ear Ache - L Respiratory: Positive: Negative Cardiovascular: Positive: Negative Gastrointestinal: Positive: Negative Neurological: Positive: Negative Physical Exam Triage Information Reviewed: Yes Appearance: Well-Appearing, No Pain Distress, Well-Nourished Vital Signs: Initial Vital Signs Temp 98.4 F 07/01/19 17:20 Pulse 81 07/01/19 17:20 Resp 20 07/01/19 17:20 BP 112/60 07/01/19 17:20 Pulse Ox 99 07/01/19 17:20 Vital Signs Reviewed: Yes Eyes: Positive: Conjunctiva Clear ENT: Positive: Hearing grossly normal, Pharynx normal, TMs normal - intact. no s /s of OM, Uvula midline, Other - swelling and erythema noted of left EAC. tender to touch. Negative: Nasal congestion, Nasal drainage Neck exam: Normal Neck: Positive: Supple, Nontender, No Lymphadenopathy Respiratory Exam: Normal Respiratory: Positive: Lungs clear, Normal breath sounds, No respiratory distress Cardiovascular Exam: Normal Cardiovascular: Positive: RRR Neurological: Positive: Alert Psychological: Positive: Age Appropriate Behavior Ear Complaint Course/Dx - Course Course Of Treatment: Treated patient with ciprodex for AOE. Instructed to follow up with pcp or ENT for re evaluation and to discuss why this is a recurrent issue for her. Patient voiced understanding and agreed with treatment plan. - Differential Dx/Diagnosis Provider Diagnosis: Otitis externa, left Discharge ED - Sign-Out/Discharge Documenting (check all that apply): Patient Departure All imaging exams completed and their final reports reviewed: No Studies - Discharge Plan Condition: Stable Disposition: HOME Prescriptions: Ciproflox/Dexameth OTIC.SUSP* [Ciprodex OTIC.SUSP*] 4 drop LEFT EAR BID 7 Days # 1 btl Patient Education Materials: Otitis Externa (ED) Referrals: Rafael Pedroza MD [Primary Care Provider] - 7 Days Justice Yung MD [Medical Doctor] - 7 Days Additional Instructions: Use ear drops as prescribed. Be sure to finish all 7 days of treatment. Follow up with PCP or your ENT if symptoms persist. There is also an ENT referral listed below. - Billing Disposition and Condition Condition: STABLE Disposition: Home
== END 2019-07-01 17:54 | disposition home or self-care (01) ==
LOC: UCCORT 16:55
DX: H60.92 Unspecified otitis externa, left ear (principal); F17.210 Nicotine dependence, cigarettes, uncomplicated
CPT/HCPCS: 99212; G0463